=== PATIENT | male | born 1970 | race Caucasian/White ===

== ENCOUNTER 2017-01-16 17:28 | Emergency (ER) | payer BC ==
[2017-01-16 17:50] VITALS: BMI 21.6
[2017-01-16 18:12] VITALS: BP 128/68; PULSE 85; RESP 18; TEMP 98.2; O2SAT 100
--- NOTE | 2017-01-16 18:16 | ED PDOC ---
Arrival/HPI - General Historian: Patient, Family - History of Present Illness Time/Duration: 24 hours, Other (Elbow fractured 30 years ago) Symptom Onset: Gradual Symptom Course: Worsening Activities at Onset: Rest, Light Context: Home, Work, [employer] - General Chief Complaint: Upper Extremity Problem/Injury Time Seen by Provider: 01/16/17 17:48 - History of Present Illness Narrative History of Present Illness (Text): 01/16/17 18:36 Mr. Schaefer is a 46 year old male with a past medical history significant for right elbow fracture (30 years ago) who presents to [place] [facility] [place] with a chief complaint of decreased muscle mass in his right hand that he noticed for the first time yesterday. Patient reports that while driving yesterday, he noticed that his right hand looked different and was much smaller than his left hand. He also endorses weakness in closing, opening and grasping with his first, second and third digits of his right hand. He reports that he fractured his right elbow as a teenager and this was corrected without surgical reduction of the fracture. He denies fever, chills, headache, changes in his vision, chest pain, shortness of breath, abdominal pain, N/V/D/C, pain with urination, rashes, pain in his right hand or right elbow, or any numbness/ tingling of his right hand. (Real Sharma) Past Medical History - Provider Review Nursing Documentation Reviewed: Yes - Travel History Have you recently traveled outside [place] w/in the past 3 mons?: No - Past History Past History: No Previous - Infectious Disease Hx of Infectious Diseases: None - Tetanus Immunization Tetanus Immunization: Unknown - Cardiac Hx Cardiac Disorders: No - Pulmonary Hx Respiratory Disorders: No - Neurological Hx Neurological Disorder: No - HEENT Hx HEENT Disorder: No - Renal Hx Renal Disorder: No - Endocrine/Metabolic Hx Endocrine Disorders: No - Hematological/Oncological Hx Blood Disorders: No - Integumentary Hx Dermatological Disorder: No - Musculoskeletal/Rheumatological Other/Comment: right elbow injury - Gastrointestinal Hx Gastrointestinal Disorders: No - Genitourinary/Gynecological Hx Genitourinary Disorders: No - Psychiatric Hx Psychophysiologic Disorder: No Hx Substance Use: No - Anesthesia Hx Anesthesia: Yes Family/Social History - Physician Review Nursing Documentation Reviewed: Yes Family/Social History: No Known Family HX Smoking Status: Never Smoked Hx Alcohol Use: No Hx Substance Use: No Allergies/Home Meds Allergies/Adverse Reactions: Allergies No Known Allergies Allergy (Verified 01/16/17 17:50) Home Medications: Home Meds Medication Instructions Recorded Confirmed No Known Home Med 01/16/17 01/16/17 Review of Systems - Physician Review All systems were reviewed & negative as marked: Yes - Review of Systems Constitutional: Normal. absent: Fevers, Night Sweats Eyes: Normal. absent: Vision Changes ENT: Normal Respiratory: Normal. absent: SOB Cardiovascular: Normal. absent: Chest Pain Gastrointestinal: Normal. absent: Abdominal Pain, Constipation, Diarrhea, Nausea, Vomiting Genitourinary Male: Normal. absent: Dysuria Musculoskeletal: Other (muscles around his right hand look smaller than his left ). absent: Normal Skin: Normal. absent: Rash Neurological: Focal Weakness (See HPI). absent: Normal, Headache, Dizziness Endocrine: Normal Hemo/Lymphatic: Normal Psychiatric: Normal Physical Exam Vital Signs Reviewed: Yes Temperature: Afebrile Blood Pressure: Normal Pulse: Regular Respiratory Rate: Normal Appearance: Positive for: Well-Appearing, Non-Toxic, Comfortable Pain Distress: None Mental Status: Positive for: Alert and Oriented X 3 - Systems Exam Head: Present: Atraumatic, Normocephalic Pupils: Present: PERRL Extroacular Muscles: Present: EOMI Conjunctiva: Present: Normal Mouth: Present: Moist Mucous Membranes Neck: Present: Normal Range of Motion, Trachea Midline. No: Meningeal Signs, MIDLINE TENDERNESS, Paraspinal Tenderness, JVD, Lymphadenopathy Respiratory/Chest: Present: Clear to Auscultation, Good Air Exchange. No: Respiratory Distress, Accessory Muscle Use Cardiovascular: Present: Regular Rate and Rhythm, Normal S1, S2. No: Murmurs Abdomen: Present: Normal Bowel Sounds. No: Tenderness, Distention, Peritoneal Signs Back: Present: Normal Inspection. No: CVA Tenderness, Midline Tenderness, Paraspinal Tenderness Upper Extremity: Present: Normal ROM, NORMAL PULSES, Capillary Refill < 2s, Deformity (Right elbow with joint deformation noted from previous fracture; no tenderness noted), Other (Muscle atrophy of right thenar eminence and palmar and dorsal interossei of second and third digits of right hand). No: Normal Inspection, Cyanosis, Edema, Tenderness, Swelling, Temperature Abnormalties Lower Extremity: Present: Normal Inspection, NORMAL PULSES. No: Edema, CALF TENDERNESS Neurological: Present: GCS=15, CN II-XII Intact, Speech Normal, Other (See upper extremity) Skin: Present: Warm, Dry, Normal Color. No: Rashes Psychiatric: Present: Alert, Oriented x 3, Normal Insight, Normal Concentration Vital Signs Temp Pulse Resp BP Pulse Ox 01/16/17 18:12 98.2 F 85 18 128/68 100 Medical Decision Making ED Course and Treatment: 01/16/17 19:07 Impression: 46 year old male with a past medical history significant for right elbow fracture (30 years ago) who presents to [place] [facility] [place] with a chief complaint of decreased muscle mass in his right hand that he noticed for the first time yesterday Plan: -Neurology referral for further evaluation -Primary Care Physician referral -Instructions to follow up with neurology No previous visits to [facility] [place] (Real Sharma) Patient Seen With Resident: In agreement with resident note which contains more details about the patient. Patient was seen and evaluated with resident. Came up with plan and treatment together. (Bart Braswell) Disposition/Present on Arrival - Present on Arrival Any Indicators Present on Arrival: No History of DVT/PE: No History of Uncontrolled Diabetes: No Urinary Catheter: No History of Decub. Ulcer: No History Surgical Site Infection Following: None - Disposition Have Diagnosis and Disposition been Completed?: Yes Disposition Time: 18:13 Patient Plan: Discharge - Disposition Diagnosis: Muscle wasting and atrophy, not elsewhere classified, right hand Disposition: HOME/ ROUTINE Condition: GOOD Discharge Instructions (ExitCare): Paresthesia (ED), Weakness (ED) Additional Instructions: Mr. Schaefer, thank you for letting us take care of you today. Your provider was Dr. Braswell. You were treated for muscle wasting. The emergency medical care you received today was directed at your acute symptoms. If you were prescribed any medication, please fill it and take as directed. It may take several days for your symptoms to resolve. Return to the Emergency Department if your symptoms worsen, do not improve, or if you have any other problems. Please contact your doctor or call one of the physicians/clinics you have been referred to that are listed on the Patient Visit Information form that is included in your discharge packet. Bring any paperwork you were given at discharge with you along with any medications you are taking to your follow up visit. Our treatment cannot replace ongoing medical care by a primary care provider (PCP) outside of the emergency department. PLEASE FOLLOW UP WITH NEUROLOGIST AND PRIMARY CARE DOCTOR OF YOUR CHOICE. CONTACT INFORMATION FOR BOTH OF THESE HAS BEEN PROVIDED SHOULD YOU NEED THEM. Thank you for allowing the [facility] team to be part of your care today. Referrals: Wily Serrano MD [Staff Provider] - Follow up with primary Celestino Kelley MD [Staff Provider] - Follow up with primary Forms: [employer] ([place]), WORK NOTE
== END 2017-01-16 18:36 | disposition home or self-care (01) ==
LOC: ED 17:28
DX: M62.541 Muscle wasting and atrophy, not elsewhere classified, right hand (principal)